=== PATIENT | female | born 1960 | race Caucasian/White ===

== ENCOUNTER → 2018-01-28 | Outpatient (CLI) | payer OTHER | END | disposition home or self-care (01) | LOC: NUCLEAR 09:30 → EDBD 09:52 → NUCLEAR 09:52 | DX: R70.0 Elevated erythrocyte sedimentation rate (principal); M46.1 Sacroiliitis, not elsewhere classified; M06.4 Inflammatory polyarthropathy | CPT/HCPCS: 78315; A9503 ==